=== PATIENT | female | born 1985 | race African-American/Black ===

== ENCOUNTER 2016-12-14 09:05 | Emergency (ER) | payer OTHER ==
[~2016-12-14] VITALS: Ht 160 cm; Wt 51.0 kg
[~2016-12-14 09:05] MED LIST: IBUP-232 PO; PERC5TAB12 PO
[2016-12-14 09:15] VITALS: BP 112/66; PULSE 81; RESP 20; TEMP 98.7; O2SAT 100
[2016-12-14 09:45] VITALS: O2SAT 99
[2016-12-14] MEDS ORDERED: SODIUM CHLORIDE 0.9% FLUSH 5 ML FLUSH IVF PRN (10:00)
[2016-12-14] MEDS ORDERED: PRED20 PO (10:13)
--- NOTE | 2016-12-14 10:13 | PD ---
HPI Chief Complaint: Respiratory Distress Time Seen by Provider: 09:44 Travel History International Travel<30 days: No Contact w/Intl Traveler<30days: No Traveled to known affect area: No History of Present Illness HPI 31-year-old female with history of asthma here with complaint of shortness of breath. Patient states that she has been doing well from an asthma perspective for the last 2 years. She does not have any home breathing treatments. She has been ill for the last 1-2 weeks with cough, chest congestion. Sputum is minimally productive. She states she feels wheezy but again does not have any home breathing treatments. No fevers or chills but does have body aches. EMS was called and patient was given 125 mg Solu-Medrol, DuoNeb 2 en route with some improvement of her symptoms subjectively. No recent travel, DVT or PE risk factors. PFSH Past Medical History Asthma: Yes Heart Rhythm Problems: Yes (AGE 10 - "RAPID HEART BEAT") Diminished Hearing: No Gastrointestinal Disorders: Yes (PANCREATITIS, GASTRITIS) Respiratory: Yes (ASTHMA) Immunizations Current: Yes Pancreatitis: Yes ?: Not : 1 Para: 1 Ovarian Cysts: Yes Social History Alcohol Use: No Tobacco Use: Yes (1 PPD) Substance Use: Yes (MARIJUANA DAILY) Allergies-Medications (Allergen,Severity, Reaction): Coded Allergies: Tuberculin PPD (Verified Allergy, Unknown, Hives, 12/14/16) Milk (Verified Adverse Reaction, Severe, UNKNOWN, 12/14/16) Tomato (Verified Adverse Reaction, Severe, UNKNOWN , 12/14/16) Morphine (Verified Adverse Reaction, Unknown, Nausea/Vomiting, 12/14/16) DOES NOT LIKE THE WAY IT MAKES HER FEEL Reported Meds & Prescriptions Reported Meds & Active Scripts Active Prednisone 20 Mg Tab 40 Mg PO DAILY 5 Days Ibuprofen 600 Mg Tab 600 Mg PO Q8HR PRN Review of Systems Except as stated in HPI: all other systems reviewed are Neg Physical Exam Narrative GENERAL: Well-appearing female in no acute distress SKIN: Warm and dry. HEAD: Normocephalic. EYES: No scleral icterus. No injection or drainage. ENT: Mucous membranes pink and moist. NECK: Supple CARDIOVASCULAR: Regular rate and rhythm. No murmur appreciated. RESPIRATORY: No accessory muscle use. Diffuse wheezing and rhonchi GASTROINTESTINAL: Abdomen soft, non-tender, nondistended. MUSCULOSKELETAL: Moves all extremities normally. No edema NEUROLOGICAL: Awake and alert. Normal speech. PSYCHIATRIC: Appropriate mood and affect; insight and judgment normal. Data Data Last Documented VS Vital Signs Date Time Temp Pulse Resp B/P Pulse Ox O2 Delivery O2 Flow Rate FiO2 12/14/16 09:45 99 Room Air 12/14/16 09:21 95 20 12/14/16 09:15 98.7 112/66 Orders Electrocardiogram (12/14/16 ) Ecg Monitoring (12/14/16 09:52) Oximetry (12/14/16 09:52) Sodium Chloride 0.9% Flush (Ns Flush) (12/14/16 10:00) Albuterol-Ipratropium Neb (Duoneb Neb) (12/14/16 10:00) Chest, Single Ap (12/14/16 ) MDM Medical Decision Making Medical Screen Exam Complete: Yes Emergency Medical Condition: Yes Medical Record Reviewed: Yes Differential Diagnosis 31-year-old female with history of asthma here with one to 2 weeks of cough, cold, chest congestion. Exam is consistent with asthma exacerbation, mild to moderate. Differential includes viral syndrome, influenza, pneumonia. No DVT or PE risk factors and patient is negative based on PERC criteria. Narrative Course patient given Solu-Medrol per EMS. Given additional 2 duo nebs here with improvement of her symptoms. Portal chest x-ray was obtained and by my read shows no evidence of infiltrate. Patient will be discharged home with steroids , albuterol. Twelve-lead EKG shows sinus rhythm without notable ST or T-wave abnormalities and normal intervals. Diagnosis Primary Impression: Asthma exacerbation Additional Impression: Viral syndrome Referrals: Primary Care Physician as needed Additional Instructions: Albuterol as needed. Steroids as prescribed. Med/Other Pt SpecificInfo: Prescription(s) given Scripts Nebulizer 1 Mis Mis #1 EA .ROUTE DIRECTED Ref 0 Use with albuterol every 4 hours as needed for shortness of breath, wheezing. Prov:Elva Nick MD 12/14/16 Albuterol Neb 2.5 Mg/3 Ml Neb2.5 Mg NEB Q4HR NEB PRN (SHORTNESS OF BREATH) #60 NEBULE Ref 0 Prov:Elva Nick MD 12/14/16 Albuterol 18 GM Inh (Ventolin Hfa 18 GM Inh)90 Mcg/Act Aer2 Puff INH Q4H PRN ( SHORTNESS OF BREATH) #1 INHALER Ref 0 Prov:Elva Nick MD 12/14/16 Prednisone 20 Mg Tab40 Mg PO DAILY 5 Days Ref 0 Prov:Elva Nick MD 12/14/16 Disposition: 01 DISCHARGE HOME Condition: Stable Elva Nick MD Dec 14, 2016 10:13
[2016-12-14] MEDS ORDERED: VENTAER INH (10:15)
[2016-12-14] MEDS ORDERED: NEBULIZER1 MI1 (10:15)
[2016-12-14] MEDS ORDERED: ALBU0.08 NEB (10:15)
[2016-12-14] MEDS: RESP: ALBUTEROL 2.5 MG/IPRATROPIUM 0.5 MG NEB (SCH) INH (10:18)
--- NOTE | 2016-12-14 10:28 | RADRPT ---
EXAM DATE/TIME: 12/14/2016 10:03 [facility] COMPARISON: CHEST SINGLE AP, November 21, 2016, 13:44. INDICATIONS : Short of breath and cough. MEDICAL HISTORY : None. SURGICAL HISTORY : None. ENCOUNTER: Initial ACUITY: 4 - 6 days PAIN SCORE: 0/10 LOCATION: Bilateral chest FINDINGS: A single view of the chest demonstrates the lungs to be symmetrically aerated without evidence of mas s, infiltrate or effusion. The cardiomediastinal contours are unremarkable. Osseous structures are intact. CONCLUSION: No acute disease. No significant change has occurred. David Monterroso MD on December 14, 2016 at 10:26 Board Certified Radiologist. This report was verified electronically.
--- NOTE | 2016-12-14 22:35 | EKG ---
Date Performed: 12/14/2016 Time Performed: 09:33:05 PTAGE: 31 years EKG: Sinus rhythm NORMAL ECG PREVIOUS TRACING : 11/21/2016 12.52 DOCTOR: Staci Pabon Interpretating Date/Time 12/14/2016 22:34:13
== END 2016-12-14 10:49 | disposition home or self-care (01) ==
LOC: NEPE 09:05
DX: J45.901 Unspecified asthma with (acute) exacerbation (principal); B34.9 Viral infection, unspecified; F17.210 Nicotine dependence, cigarettes, uncomplicated; F12.10 Cannabis abuse, uncomplicated
CPT/HCPCS: 71010; 93005; 94640; 94664

== ENCOUNTER 2017-06-23 16:00 | Emergency (ER) | payer OTHER ==
[~2017-06-23] VITALS: Ht 160 cm; Wt 48.1 kg
[~2017-06-23 16:00] MED LIST changes: +ALBU0.08 NEB; +NEBULIZER1 MI1; -PERC5TAB12 PO; +PRED20 PO; +VENTAER INH
[2017-06-23 16:03] VITALS: BP 157/85; PULSE 76; RESP 16; TEMP 99.7; O2SAT 100
[2017-06-23] MEDS ORDERED: SODIUM CHLOR 0.9% 1000 ML INJ 1,000 ML IV SCH (16:12)
[2017-06-23] MEDS ORDERED: ONDANSETRON HCL 4 MG/2 ML VIAL IVP ONE (16:15)
[2017-06-23] MEDS ORDERED: SODIUM CHLORIDE 0.9% FLUSH 10 ML FLUSH IV FLUSH PRN (16:15)
[2017-06-23] MEDS ORDERED: HYDROmorphone HCL PF 1 MG/ML VIAL IVS ONE (16:15)
--- NOTE | 2017-06-23 16:23 | PD ---
HPI Chief Complaint: Abdominal Pain Time Seen by Provider: 16:06 Travel History International Travel<30 days: No Contact w/Intl Traveler<30days: No Traveled to known affect area: No History of Present Illness HPI The patient is a 32-year-old [place] female who presents emergency department for abdominal pain. The patient states she had pizza approximate 7: 30 PM last night and then went to bed. Patient awakened at 5:30 AM with nausea , vomiting, and epigastric abdominal pain. The patient has a history of similar symptoms secondary to gastritis and possibly pancreatitis. The patient denies any history of gallstones or heavy alcohol use. She denies previous abdominal surgeries. The patient now complains of dry heaves secondary to persistent nausea, denies any lower abdominal pain, dysuria, fatigue, urgency, vaginal bleeding, or vaginal discharge. The first day last menstrual cycle was at the beginning of the month, patient denies and states she is currently not sexually active. The patient denies any associated fever, chills , or sweats. Symptoms are moderate without any alleviating or exacerbating factors. PFSH Past Medical History Asthma: Yes Heart Rhythm Problems: Yes (AGE 10 - "RAPID HEART BEAT") Diminished Hearing: No Gastrointestinal Disorders: Yes (PANCREATITIS, GASTRITIS) Respiratory: Yes (ASTHMA) Immunizations Current: Yes Pancreatitis: Yes ?: Not LMP: 05/2017 : 1 Para: 1 Ovarian Cysts: Yes Social History Alcohol Use: No Tobacco Use: Yes (1 PPD) Substance Use: Yes (MARIJUANA DAILY) Allergies-Medications (Allergen,Severity, Reaction): Coded Allergies: Tuberculin PPD (Verified Allergy, Unknown, Hives, 06/23/17) Milk (Verified Adverse Reaction, Severe, UNKNOWN, 06/23/17) Tomato (Verified Adverse Reaction, Severe, UNKNOWN , 06/23/17) Morphine (Verified Adverse Reaction, Unknown, Nausea/Vomiting, 06/23/17) DOES NOT LIKE THE WAY IT MAKES HER FEEL Reported Meds & Prescriptions Reported Meds & Active Scripts Active Nebulizer 1 Mis Mis 1 Ea .ROUTE DIRECTED Use with albuterol every 4 hours as needed for shortness of breath, wheezing. Albuterol Neb (Albuterol Sulfate) 2.5 Mg/3 Ml Neb 2.5 Mg NEB Q4HR NEB PRN Ventolin Hfa 18 GM Inh (Albuterol Sulfate) 90 Mcg/Act Aer 2 Puff INH Q4H PRN Prednisone 20 Mg Tab 40 Mg PO DAILY 5 Days Ibuprofen 600 Mg Tab 600 Mg PO Q8HR PRN Review of Systems Except as stated in HPI: all other systems reviewed are Neg General / Constitutional: No: Fever, Chills Cardiovascular: No: Chest Pain or Discomfort Respiratory: No: Shortness of Breath Gastrointestinal: Positive: Nausea, Vomiting, Abdominal Pain, No: Diarrhea, Constipation, Changes in Bowel Habits Genitourinary: No: Urgency, Frequency, Dysuria, Discharge, Vaginal Bleeding Physical Exam Narrative GENERAL: Awake, alert, very pleasant 32-year-old female who appears her stated age is in no acute respiratory distress. SKIN: Focused skin assessment warm/dry. HEAD: Atraumatic. Normocephalic. EYES: Pupils equal and round. No scleral icterus. No injection or drainage. ENT: No nasal bleeding or discharge. Slightly dry mucous members. NECK: Trachea midline. No JVD. CARDIOVASCULAR: Regular rate and rhythm. No murmur appreciated. RESPIRATORY: No accessory muscle use. Clear to auscultation. Breath sounds equal bilaterally. GASTROINTESTINAL: Abdomen soft, epigastric tenderness. No rebound tenderness. Back: No CVA tenderness. MUSCULOSKELETAL: No obvious deformities. No clubbing. No cyanosis. No edema. NEUROLOGICAL: Awake and alert. No obvious cranial nerve deficits. Motor grossly within normal limits. Normal speech. PSYCHIATRIC: Appropriate mood and affect; insight and judgment normal. Data Data Last Documented VS Vital Signs Date Time Temp Pulse Resp B/P Pulse Ox O2 Delivery O2 Flow Rate FiO2 06/23/17 18:07 72 18 111/65 99 Room Air 06/23/17 16:03 99.7 Orders Complete Blood Count With Diff (06/23/17 16:12) Comprehensive Metabolic Panel (06/23/17 16:12) Lipase (06/23/17 16:12) Urinalysis - C+S If Indicated (06/23/17 16:12) Iv Access Insert/Monitor (06/23/17 16:12) Ecg Monitoring (06/23/17 16:12) Oximetry (06/23/17 16:12) Ondansetron Inj (Zofran Inj) (06/23/17 16:15) Sodium Chlor 0.9% 1000 Ml Inj (Ns 1000 M (06/23/17 16:12) Sodium Chloride 0.9% Flush (Ns Flush) (06/23/17 16:15) Hydromorphone Pf Inj (Dilaudid Pf Inj) (06/23/17 16:15) Us Abdomen Gallbladder (06/23/17 ) Hydromorphone Pf Inj (Dilaudid Pf Inj) (06/23/17 17:30) Famotidine Inj (Pepcid Inj) (06/23/17 17:30) Labs Laboratory Tests Test 06/23/17 16:30 White Blood Count 8.4 TH/MM3 Red Blood Count 4.94 MIL/MM3 Hemoglobin 13.2 GM/DL Hematocrit 40.6 % Mean Corpuscular Volume 82.3 FL Mean Corpuscular Hemoglobin 26.7 PG Mean Corpuscular Hemoglobin 32.4 % Concent Red Cell Distribution Width 13.4 % Platelet Count 152 TH/MM3 Mean Platelet Volume 8.9 FL Neutrophils (%) (Auto) 87.6 % Lymphocytes (%) (Auto) 9.2 % Monocytes (%) (Auto) 0.8 % Eosinophils (%) (Auto) 0.1 % Basophils (%) (Auto) 2.3 % Neutrophils # (Auto) 7.3 TH/MM3 Lymphocytes # (Auto) 0.8 TH/MM3 Monocytes # (Auto) 0.1 TH/MM3 Eosinophils # (Auto) 0.0 TH/MM3 Basophils # (Auto) 0.2 TH/MM3 CBC Comment DIFF FINAL Differential Comment Sodium Level 144 MEQ/L Potassium Level 3.5 MEQ/L Chloride Level 113 MEQ/L Carbon Dioxide Level 22.8 MEQ/L Anion Gap 8 MEQ/L Blood Urea Nitrogen 12 MG/DL Creatinine 1.10 MG/DL Estimat Glomerular Filtration 69 ML/MIN Rate Random Glucose 124 MG/DL Calcium Level 8.7 MG/DL Total Bilirubin 0.3 MG/DL Aspartate Amino Transf 39 U/L (AST/SGOT) Alanine Aminotransferase 32 U/L (ALT/SGPT) Alkaline Phosphatase 72 U/L Total Protein 7.1 GM/DL Albumin 3.5 GM/DL Lipase 104 U/L [facility] Medical Decision Making Medical Screen Exam Complete: Yes Emergency Medical Condition: Yes Medical Record Reviewed: Yes Interpretation(s) Last Impressions Gall Bladder Ultrasound 06/23/17 0000 Signed Impressions: Service Date/Time: Friday, June 23, 2017 16:56 - CONCLUSION: Negative sonogram of the gallbladder and liver. Klever Rivera MD Laboratory Tests Test 06/23/17 16:30 White Blood Count 8.4 TH/MM3 Red Blood Count 4.94 MIL/MM3 Hemoglobin 13.2 GM/DL Hematocrit 40.6 % Mean Corpuscular Volume 82.3 FL Mean Corpuscular Hemoglobin 26.7 PG Mean Corpuscular Hemoglobin 32.4 % Concent Red Cell Distribution Width 13.4 % Platelet Count 152 TH/MM3 Mean Platelet Volume 8.9 FL Neutrophils (%) (Auto) 87.6 % Lymphocytes (%) (Auto) 9.2 % Monocytes (%) (Auto) 0.8 % Eosinophils (%) (Auto) 0.1 % Basophils (%) (Auto) 2.3 % Neutrophils # (Auto) 7.3 TH/MM3 Lymphocytes # (Auto) 0.8 TH/MM3 Monocytes # (Auto) 0.1 TH/MM3 Eosinophils # (Auto) 0.0 TH/MM3 Basophils # (Auto) 0.2 TH/MM3 CBC Comment DIFF FINAL Differential Comment Sodium Level 144 MEQ/L Potassium Level 3.5 MEQ/L Chloride Level 113 MEQ/L Carbon Dioxide Level 22.8 MEQ/L Anion Gap 8 MEQ/L Blood Urea Nitrogen 12 MG/DL Creatinine 1.10 MG/DL Estimat Glomerular Filtration 69 ML/MIN Rate Random Glucose 124 MG/DL Calcium Level 8.7 MG/DL Total Bilirubin 0.3 MG/DL Aspartate Amino Transf 39 U/L (AST/SGOT) Alanine Aminotransferase 32 U/L (ALT/SGPT) Alkaline Phosphatase 72 U/L Total Protein 7.1 GM/DL Albumin 3.5 GM/DL Lipase 104 U/L Differential Diagnosis Differential diagnosis includes gastritis, pancreatitis, biliary colic, cholecystitis, peptic ulcer disease, food poisoning, viral syndrome. Narrative Course IV was established, labs are drawn and sent, and the patient was placed on cardiac telemetry monitoring and continuous pulse oximetry monitoring. The patient was a administered Dilaudid, Zofran, and IV fluids. Ultrasound of the gallbladder was performed. The patient's temperature was 99.7, CBC was unremarkable. LFTs are unremarkable except for AST of 39, AST and lipase are unremarkable. Creatinine is mildly elevated 1.10. Ultrasound is unremarkable, no evidence of cholecystitis. The patient was reevaluated for symptom control. Diagnosis Primary Impression: Abdominal pain Qualified Code: R10.13 - Epigastric pain Additional Impression: Gastritis Qualified Code: K29.00 - Acute gastritis, presence of bleeding unspecified, unspecified gastritis type Patient Instructions: General Instructions Additional Instructions: Medications as directed. Follow-up with your primary physician. Follow-up with gastroenterology if symptoms persist as he may benefit from outpatient endoscopy. Return if symptoms worsen or progress. Please provide the patient a copy of her ultrasound results and lab results at discharge. Med/Other Pt SpecificInfo: Prescription(s) given Scripts Hydrocodone-Acetaminophen (Timbo)5-325 mg Tab1 Tab PO Q6H PRN (PAIN) #12 TAB Ref 0 Prov:Kd Malik MD 06/23/17 Ondansetron Odt (Zofran Odt)4 Mg Tab4 Mg SL Q6HR PRN (Nausea/Vomiting) #7 TAB Ref 0 Prov:Kd Malik MD 06/23/17 Ranitidine (Zantac 150 Maximum Strength)150 Mg [id number] Mg PO BID 28 Days Prov:Kd Malik MD 06/23/17 Disposition: 01 DISCHARGE HOME Condition: Stable Kd Malik MD Jun 23, 2017 16:23
[2017-06-23 16:41] LABS: AUTOMATED NEUTROPHIL # 7.3 TH/MM3 (1.8-7.7); BASOPHIL # 0.2 TH/MM3 (0-0.2); BASOPHIL % 2.3 % (0.0-2.0); EOSINOPHIL % 0.1 % (0.0-4.0); HEMATOCRIT 40.6 % (35.0-46.0); HEMO FLAGS DIFF FINAL; LYMPH % 9.2 % (9.0-44.0); LYMPHOCYTE # 0.8 TH/MM3 (1.0-4.8); MEAN CELL VOLUME 82.3 FL (80.0-100.0); MEAN CORPUSCULAR HEMOGLOBIN 26.7 PG (27.0-34.0); MEAN CORPUSCULAR HGB CONC 32.4 % (32.0-36.0); MONO % 0.8 % (0.0-8.0); NEUT % 87.6 % (16.0-70.0); PLATELET COUNT 152 TH/MM3 (150-450); RED BLOOD COUNT 4.94 MIL/MM3 (4.00-5.30); RED CELL DISTRIBUTION WIDTH 13.4 % (11.6-17.2); WHITE BLOOD COUNT 8.4 TH/MM3 (4.0-11.0)
[2017-06-23 16:50] LABS: CHLORIDE 113 MEQ/L (98-107); POTASSIUM 3.5 MEQ/L (3.5-5.1); SODIUM (NA) 144 MEQ/L (136-145)
[2017-06-23 16:55] LABS: ANION GAP 8 MEQ/L (5-15); BICARBONATE 22.8 MEQ/L (21.0-32.0); BLOOD UREA NITROGEN 12 MG/DL (7-18)
[2017-06-23 16:57] LABS: ALT (GPT) 32 U/L (10-53); AST (GOT) 39 U/L (15-37); GLOMERULAR FILTRATION RATE 69 ML/MIN (>89)
[2017-06-23 16:59] LABS: TOTAL BILIRUBIN ADULT 0.3 MG/DL (0.2-1.0)
[2017-06-23 17:00] LABS: ALKALINE PHOSPHATASE 72 U/L (45-117)
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
[2017-06-23] MEDS ORDERED: FAMOTIDINE 20 MG/2 ML VIAL IV PUSH SCH (17:30)
[2017-06-23] MEDS ORDERED: HYDROmorphone HCL PF 1 MG/ML VIAL IV PUSH ONE (17:30)
[2017-06-23 18:07] VITALS: BP 111/65; PULSE 72; RESP 18; O2SAT 99
[2017-06-23] MEDS ORDERED: ZOFR4TAB3 SL (18:23)
[2017-06-23] MEDS ORDERED: NORC5TAB PO (18:23)
[2017-06-23] MEDS ORDERED: ZANTTAB PO (18:23)
[2017-06-23 19:03] VITALS: BP 120/74; PULSE 86; RESP 16; TEMP 100; O2SAT 99
== END 2017-06-23 19:15 | disposition home or self-care (01) ==
LOC: PHED 16:00
DX: K29.00 Acute gastritis without bleeding (principal); F17.200 Nicotine dependence, unspecified, uncomplicated
CPT/HCPCS: 76705; 80053; 83690; 85025; 96361; 96374; 96375; 99285; J1170; J2405; J7030

== ENCOUNTER 2017-06-24 22:14 | Emergency (ER) | payer OTHER ==
[~2017-06-24] VITALS: Ht 160 cm; Wt 48.8 kg
[~2017-06-24 22:14] MED LIST changes: +NORC5TAB PO; +ZANTTAB PO; +ZOFR4TAB3 SL
[2017-06-24 22:28] VITALS: BP 136/76; PULSE 62; RESP 12; TEMP 99.5; O2SAT 100
[2017-06-25] MEDS ORDERED: TYLE325T PO (08:40)
== END 2017-06-24 22:49 | disposition left against medical advice (07) ==
LOC: PHED 22:14
DX: R10.9 Unspecified abdominal pain (principal)
CPT/HCPCS: 99281

== ENCOUNTER 2017-06-25 06:05 | Emergency (ER) | payer OTHER ==
[~2017-06-25] VITALS: Ht 160 cm; Wt 48.8 kg
[2017-06-25 06:09] VITALS: BP 141/80; PULSE 62; RESP 12; TEMP 98.8; O2SAT 100
[2017-06-25] MEDS ORDERED: SODIUM CHLOR 0.9% 1000 ML INJ 1,000 ML IV SCH (06:27)
[2017-06-25] MEDS ORDERED: LIDOCAINE VISCOUS 2% SOLN 15 ML UDC PO ONE (06:30)
[2017-06-25] MEDS ORDERED: ONDANSETRON HCL 4 MG/2 ML VIAL IVP ONE (06:30)
[2017-06-25] MEDS ORDERED: PANTOPRAZOLE SODIUM 40 MG VIAL IVP ONE (06:30)
[2017-06-25] MEDS ORDERED: ALUMINUM/MAGNESIUM/SIMETH 30 ML CUP PO ONE (06:30)
[2017-06-25] MEDS ORDERED: SODIUM CHLORIDE 0.9% FLUSH 10 ML FLUSH IV FLUSH PRN (06:30)
--- NOTE | 2017-06-25 07:00 | PD ---
HPI Chief Complaint: Abdominal Pain Time Seen by Provider: 06:22 Travel History International Travel<30 days: No Contact w/Intl Traveler<30days: No Traveled to known affect area: No History of Present Illness HPI Patient is a 32-year-old female who comes in complaining of abdominal pain. She was here 2 days ago for the same thing. She has labs and ultrasound performed that showed no acute abnormalities. She was discharged with Zantac, pain medicine, Zofran. She said she took the pills once, but they have not been helping. She says the pain is so bad that she cannot sleep. The pain is located in her epigastric area. She says it started after eating pizza tonight to go. She says she has had a fever of 101. She has had nausea and vomiting. She denies any dysuria or discharge. PFSH Past Medical History Asthma: Yes Heart Rhythm Problems: Yes (AGE 10 - "RAPID HEART BEAT") Diminished Hearing: No Gastrointestinal Disorders: Yes (PANCREATITIS, GASTRITIS) Respiratory: Yes (ASTHMA) Immunizations Current: Yes Pancreatitis: Yes Tetanus Vaccination: Unknown Influenza Vaccination: Yes ?: Not LMP: 05/26/17 : 1 Para: 1 Ovarian Cysts: Yes Social History Alcohol Use: Yes (SOC) Tobacco Use: Yes (1 PPD) Substance Use: No (DENIES, PREVIOUSLY STATED MARIJUANA DAILY) Allergies-Medications (Allergen,Severity, Reaction): Coded Allergies: Tuberculin PPD (Verified Allergy, Unknown, Hives, 06/23/17) Milk (Verified Adverse Reaction, Severe, UNKNOWN, 06/23/17) Tomato (Verified Adverse Reaction, Severe, UNKNOWN , 06/23/17) Morphine (Verified Adverse Reaction, Unknown, Nausea/Vomiting, 06/23/17) DOES NOT LIKE THE WAY IT MAKES HER FEEL Reported Meds & Prescriptions Reported Meds & Active Scripts Active [place]anova (Hydrocodone-Acetaminophen) 5-325 mg Tab 1 Tab PO Q6H PRN Zofran Odt (Ondansetron Odt) 4 Mg Tab 4 Mg SL Q6HR PRN Zantac 150 Maximum Strength (Ranitidine HCl) 150 Mg Tab 150 Mg PO BID 28 Days Nebulizer 1 Mis Mis 1 Ea .ROUTE DIRECTED Use with albuterol every 4 hours as needed for shortness of breath, wheezing. Albuterol Neb (Albuterol Sulfate) 2.5 Mg/3 Ml Neb 2.5 Mg NEB Q4HR NEB PRN Ventolin Hfa 18 GM Inh (Albuterol Sulfate) 90 Mcg/Act Aer 2 Puff INH Q4H PRN Prednisone 20 Mg Tab 40 Mg PO DAILY 5 Days Ibuprofen 600 Mg Tab 600 Mg PO Q8HR PRN Review of Systems Except as stated in HPI: all other systems reviewed are Neg General / Constitutional: Positive: Fever HENT: No: Headaches, Lightheadedness Cardiovascular: No: Chest Pain or Discomfort Respiratory: No: Shortness of Breath Gastrointestinal: Positive: Nausea, Vomiting, Abdominal Pain Genitourinary: No: Dysuria Musculoskeletal: No: Edema Skin: No Rash, No Change in Pigmentation Neurologic: No: Weakness, Dizziness Physical Exam Narrative GENERAL: Awake and alert, in no acute distress. SKIN: Focused skin assessment warm/dry. HEAD: Atraumatic. Normocephalic. EYES: Pupils equal and round. No scleral icterus. ENT: Mucous membranes pink and moist. NECK: Trachea midline. No JVD. CARDIOVASCULAR: Regular rate and rhythm. No murmur appreciated. RESPIRATORY: No accessory muscle use. Clear to auscultation. Breath sounds equal bilaterally. GASTROINTESTINAL: Abdomen soft, nondistended. Tender to palpation of the epigastric area. No rebound or guarding. MUSCULOSKELETAL: No obvious deformities. No clubbing. No cyanosis. No edema. NEUROLOGICAL: Awake and alert. No obvious cranial nerve deficits. Motor grossly within normal limits. Normal speech. PSYCHIATRIC: Appropriate mood and affect; insight and judgment normal. Data Data Last Documented VS Vital Signs Date Time Temp Pulse Resp B/P Pulse Ox O2 Delivery O2 Flow Rate FiO2 06/25/17 06:25 18 06/25/17 06:09 98.8 62 141/80 100 Orders Complete Blood Count With Diff (06/25/17 06:27) Comprehensive Metabolic Panel (06/25/17 06:27) Lipase (06/25/17 06:27) Prothrombin Time / Inr (Pt) (06/25/17 06:27) Act Partial Throm Time (Ptt) (06/25/17 06:27) Urinalysis - C+S If Indicated (06/25/17 06:27) Ua Includes Microscopic (06/25/17 06:27) Ct Abd/Pel W Iv Contrast(Rout) (06/25/17 06:27) Iv Access Insert/Monitor (06/25/17 06:27) Ecg Monitoring (06/25/17 06:27) Oximetry (06/25/17 06:27) Ondansetron Inj (Zofran Inj) (06/25/17 06:30) Pantoprazole Inj (Protonix Inj) (06/25/17 06:30) Sodium Chlor 0.9% 1000 Ml Inj (Ns 1000 M (06/25/17 06:27) Sodium Chloride 0.9% Flush (Ns Flush) (06/25/17 06:30) Al-Mag Hy-Si 40-40-4 Mg/Ml Liq (Mag-Al P (06/25/17 06:30) Lidocaine 2% Viscous (Xylocaine 2% Visco (06/25/17 06:30) Ed Urine Pregnancytest Poc (06/25/17 06:27) MDM Medical Decision Making Medical Screen Exam Complete: Yes Emergency Medical Condition: Yes Medical Record Reviewed: Yes Differential Diagnosis Gastritis versus GERD versus pancreatitis versus cholecystitis Narrative Course Patient is a 32-year-old female comes in complaining of epigastric abdominal pain. She was here 2 days ago for the same thing. Exam shows tenderness to the epigastric region. IV established, labs sent. Patient given GI cocktail. Patient signed out to Dr. Chakraborty to follow up testing and disposition the patient. Condition: Stable Wendy Alexander MD Jun 25, 2017 07:00
[2017-06-25 07:06] LABS: HEMATOCRIT 39.4 % (35.0-46.0); MEAN CELL VOLUME 82.3 FL (80.0-100.0); MEAN CORPUSCULAR HEMOGLOBIN 27.4 PG (27.0-34.0); MEAN CORPUSCULAR HGB CONC 33.3 % (32.0-36.0); PLATELET COUNT 135 TH/MM3 (150-450); RED BLOOD COUNT 4.79 MIL/MM3 (4.00-5.30); RED CELL DISTRIBUTION WIDTH 13.6 % (11.6-17.2)
[2017-06-25 07:10] VITALS: RESP 16; O2SAT 100
[2017-06-25 07:11] LABS: CHLORIDE 106 MEQ/L (98-107); POTASSIUM 3.6 MEQ/L (3.5-5.1); SODIUM (NA) 138 MEQ/L (136-145)
[2017-06-25 07:14] LABS: ANION GAP 7 MEQ/L (5-15); BLOOD UREA NITROGEN 12 MG/DL (7-18)
[2017-06-25 07:15] LABS: APTT (PATIENT) 22.7 SEC (24.3-30.1); PROTHROMBIN TIME - PATIENT 11.4 SEC (9.8-11.6)
[2017-06-25 07:17] LABS: ALT (GPT) 33 U/L (10-53); AST (GOT) 28 U/L (15-37); GLOMERULAR FILTRATION RATE 81 ML/MIN (>89)
[2017-06-25 07:19] LABS: TOTAL BILIRUBIN ADULT 0.4 MG/DL (0.2-1.0)
[2017-06-25 07:20] LABS: ALKALINE PHOSPHATASE 61 U/L (45-117)
[2017-06-25] MEDS ORDERED: KETOROLAC TROMETHAMINE 30 MG/ML (IVP) VIAL IV PUSH ONE (07:30)
--- NOTE | 2017-06-25 07:30 | PD ---
Physical Exam Narrative Received sign out from previous provider to follow up CTa/p and reevaluate. Pt is a 32yo F presents to the ED with c/o epigastric abdominal pain for 2 days. Pt is nonradiating, and associated with nausea and vomiting. States she has had this pain before, maybe a year ago. Pt was just seen here 2 days ago for this pain and had negative ultrasound. Pt was given dilaudid and she said that helped with the pain. Specifically requesting dilaudid. Denies any previous abdominal surgery or significant PMH. Abdominal exam is significant for epigastric tenderness. Pt given toradol with no improvement of pain so dilaudid 0.5mg IV given. Labs reviewed, no leukocytosis. Mild thrombocytopenia which was similar to 2015. CMP unremarkable. Lipase negative. negative. UA showed no leukocyte or nitrite. Culture not indicated. CTa/p showed no abnormality to explain clinical symptoms. No acute finding visualized. There is a new 13mm enhancing lesion within liver and outpatient elective liver MRI w/wo contrast recommended. Copy of report given to patient to follow up with PMD. Informed pt of this. Data Data Last Documented VS Vital Signs Date Time Temp Pulse Resp B/P Pulse Ox O2 Delivery O2 Flow Rate FiO2 06/25/17 07:10 16 100 Room Air 06/25/17 06:09 98.8 62 141/80 Orders Complete Blood Count With Diff (06/25/17 06:27) Comprehensive Metabolic Panel (06/25/17 06:27) Lipase (06/25/17 06:27) Prothrombin Time / Inr (Pt) (06/25/17 06:27) Act Partial Throm Time (Ptt) (06/25/17 06:27) Urinalysis - C+S If Indicated (06/25/17 06:27) Ua Includes Microscopic (06/25/17 06:27) Ct Abd/Pel W Iv Contrast(Rout) (06/25/17 06:27) Iv Access Insert/Monitor (06/25/17 06:27) Ecg Monitoring (06/25/17 06:27) Oximetry (06/25/17 06:27) Ondansetron Inj (Zofran Inj) (06/25/17 06:30) Pantoprazole Inj (Protonix Inj) (06/25/17 06:30) Sodium Chlor 0.9% 1000 Ml Inj (Ns 1000 M (06/25/17 06:27) Sodium Chloride 0.9% Flush (Ns Flush) (06/25/17 06:30) Al-Mag Hy-Si 40-40-4 Mg/Ml Liq (Mag-Al P (06/25/17 06:30) Lidocaine 2% Viscous (Xylocaine 2% Visco (06/25/17 06:30) Ed Urine Pregnancytest Poc (06/25/17 06:27) Ketorolac Inj (Toradol Inj) (06/25/17 07:30) Bhcg Screen Qualitative (06/25/17 06:55) Iohexol 350 Inj (Omnipaque 350 Inj) (06/25/17 08:00) Hydromorphone Pf Inj (Dilaudid Pf Inj) (06/25/17 08:45) Labs Laboratory Tests Test 06/25/17 06/25/17 06:55 07:43 White Blood Count 7.0 TH/MM3 Red Blood Count 4.79 MIL/MM3 Hemoglobin 13.1 GM/DL Hematocrit 39.4 % Mean Corpuscular Volume 82.3 FL Mean Corpuscular Hemoglobin 27.4 PG Mean Corpuscular Hemoglobin 33.3 % Concent Red Cell Distribution Width 13.6 % Platelet Count 135 TH/MM3 Mean Platelet Volume 9.8 FL Neutrophils (%) (Auto) % Lymphocytes (%) (Auto) % Monocytes (%) (Auto) % Eosinophils (%) (Auto) % Basophils (%) (Auto) % Neutrophils # (Auto) TH/MM3 Lymphocytes # (Auto) TH/MM3 Monocytes # (Auto) TH/MM3 Eosinophils # (Auto) TH/MM3 Basophils # (Auto) TH/MM3 CBC Comment AUTO DIFF Differential Total Cells 100 Counted Neutrophils % (Manual) 72 % Band Neutrophils % 1 % Lymphocytes % 22 % Monocytes % 4 % Eosinophils % 1 % Neutrophils # (Manual) 5.1 TH/MM3 Differential Comment FINAL DIFF MANUAL Platelet Estimate NORMAL Platelet Morphology Comment NORMAL Red Cell Morphology Comment NORMAL Prothrombin Time 11.4 SEC Prothromb Time International 1.0 RATIO Ratio Activated Partial 22.7 SEC Thromboplast Time Sodium Level 138 MEQ/L Potassium Level 3.6 MEQ/L Chloride Level 106 MEQ/L Carbon Dioxide Level 25.0 MEQ/L Anion Gap 7 MEQ/L Blood Urea Nitrogen 12 MG/DL Creatinine 0.95 MG/DL Estimat Glomerular Filtration 81 ML/MIN Rate Random Glucose 96 MG/DL Calcium Level 8.6 MG/DL Total Bilirubin 0.4 MG/DL Aspartate Amino Transf 28 U/L (AST/SGOT) Alanine Aminotransferase 33 U/L (ALT/SGPT) Alkaline Phosphatase 61 U/L Total Protein 6.8 GM/DL Albumin 3.4 GM/DL Lipase 85 U/L Beta HCG, Qualitative LESS THAN 1 MIU/ML Urine Collection Type CLEAN CATCH Urine Color YELLOW Urine Turbidity CLEAR Urine pH 6.0 Urine Specific [place] 1.010 Urine Protein NEG mg/dL Urine Glucose (UA) NEG mg/dL Urine Ketones TRACE mg/dL Urine Occult Blood TRACE Urine Nitrite NEG Urine Bilirubin NEG Urine Leukocyte Esterase NEG Urine RBC 0-3 /hpf Urine WBC 0-2 /hpf Urine Squamous Epithelial 0-5 /hpf Cells Microscopic Urinalysis Comment CULT NOT INDICATED MDM Supervised Visit with SANTOSH: No Diagnosis Primary Impression: Abdominal pain Qualified Code: R10.13 - Epigastric pain Patient Instructions: General Instructions Departure Forms: Tests/Procedures Additional Instruction: Please follow up with your PMD for further evaluation of your abdominal pain. CTa/p showed new 13mm enhancing lesion within segment 7 of the liver. Differential diagnostic considerations include hemangioma, focal nodular hyperplasia or adenoma. Please discussed with your primary care physician and consider outpatient elective liver MRI with and without IV contrast. Return to ED if symptoms worsen. Med/Other Pt SpecificInfo: Prescription(s) given Scripts Acetaminophen (Tylenol)325 Mg [id number] Mg PO Q6H PRN (PAIN SCALE 1 TO 4) #20 TAB Ref 0 Prov:Amanda Chakraborty DO 06/25/17 Disposition: 01 DISCHARGE HOME Condition: Stable Amanda Chakraborty DO Jun 25, 2017 07:30
[2017-06-25 07:35] LABS: HEMO FLAGS AUTO DIFF
[2017-06-25 07:38] LABS: BANDS 1 % (0-6); EOSINOPHILS 1 % (0-4); NEUTROPHIL # MANUAL DIFF 5.1 TH/MM3 (1.8-7.7); PLATELET ESTIMATE SMEAR NORMAL (NORMAL); PLATELET MORPHOLOGY NORMAL (NORMAL); POLYS (SEG NEUTROPHILS) 72 % (16-70); SCAN/DIFF FINAL DIFF MANUAL; WBC DIFF SAMPLE 100
[2017-06-25 07:53] LABS: BLOOD, URINE TRACE (NEG); GLUCOSE,URINE NEG (NEG); KETONE, URINE TRACE mg/dL (NEG); NITRITE,URINE NEG (NEG)
[2017-06-25 07:54] LABS: METHOD OF COLLECTION CLEAN CATCH; URINE COLOR YELLOW (YELLW/STRAW)
[2017-06-25 07:57] LABS: COMMENT (UR) CULT NOT INDICATED; CULTURE IF INDICATED CULT NOT INDICATED; RBC, URINE 0-3 /hpf (0-3); SQUAMOUS EPITHELIAL CELL URINE 0-5 /hpf (0-5); WBC, URINE 0-2 /hpf (0-5)
[2017-06-25 08:00] LABS: BHCG SCREEN QUALITATIVE LESS THAN 1 MIU/ML (0-5)
[2017-06-25] MEDS ORDERED: IOHEXOL 350 MG/ML 10 ML VIAL (for RAD DIAG) IV ONE (08:00)
--- NOTE | 2017-06-25 08:11 | RADRPT ---
EXAM DATE/TIME: 06/25/2017 07:46 [facility] COMPARISON: US ABDOMEN - GALLBLADDER, June 23, 2017, 16:56. CT ABDOMEN & PELVIS W CONTRAST, April 18, 2014, 13:01. INDICATIONS : Diffuse abdominal pain with nausea. IV CONTRAST: 90 cc Omnipaque 350 (iohexol) IV ORAL CONTRAST: No oral contrast ingested. RADIATION DOSE: 4.45 CTDIvol (mGy) MEDICAL HISTORY : Pancreatitis. Gastritis. SURGICAL HISTORY : None. ENCOUNTER: Initial ACUITY: 3 days PAIN SCALE: 5/10 LOCATION: abdomen TECHNIQUE: Volumetric scanning of the abdomen and pelvis was performed. Using automated exposure control and ad justment of the mA and/or kV according to patient size, radiation dose was kept as low as reasonably achievable to obtain optimal diagnostic quality images. DICOM format image data is available electro nically for review and comparison. FINDINGS: LOWER LUNGS: The visualized lower lungs are clear. LIVER: There is an enhancing lesion within the liver dome in segment 7 measuring 13 mm. This was not visuali zed previously. There is no dilation of the biliary tree. No calcified gallstones. SPLEEN: Normal size without lesion. PANCREAS: Within normal limits. KIDNEYS: Normal in size and shape. There is no mass, stone or hydronephrosis. ADRENAL GLANDS: Within normal limits. VASCULAR: There is no aortic aneurysm. BOWEL/MESENTERY: The stomach, small bowel, and colon demonstrate no acute abnormality. There is no free intraperitone al air or fluid. ABDOMINAL WALL: Within normal limits. RETROPERITONEUM: There is no lymphadenopathy. BLADDER: No wall thickening or mass. REPRODUCTIVE: Within normal limits. There is a normal cyst/follicle the right ovary measuring 16 mm. INGUINAL: There is no lymphadenopathy or hernia. MUSCULOSKELETAL: Within normal limits. CONCLUSION: 1. No abnormality is identified to explain the clinical symptoms. No acute finding is visualized. 2. There is a new 13 mm enhancing lesion within segment 7 of the liver. Based on the appearance, diff erential diagnostic considerations include hemangioma, focal nodular hyperplasia, or hepatocellular a denoma. Since this was not present previously, it would be ideal to definitively characterize on an o utpatient elective basis with liver MRI with and without intravenous contrast. Rober Germain MD on June 25, 2017 at 8:03 Board Certified Radiologist. This report was verified electronically.
[2017-06-25] MEDS ORDERED: TYLE325T PO (08:40)
[2017-06-25] MEDS ORDERED: HYDROmorphone HCL PF 1 MG/ML VIAL IV PUSH ONE (08:45)
[2017-06-25 09:11] VITALS: BP 117/72
== END 2017-06-25 09:25 | disposition home or self-care (01) ==
LOC: PHED 06:05
DX: R10.13 Epigastric pain (principal); F17.210 Nicotine dependence, cigarettes, uncomplicated
CPT/HCPCS: 74177; 80053; 81001; 83690; 84703; 85007; 85027; 85610; 85730; 96361; 96374; 96375; 99285; C9113; J1170; J1885; J2405; J7030; Q9967

== ENCOUNTER 2017-06-27 01:28 | Emergency (ER) | payer OTHER ==
[~2017-06-27] VITALS: Ht 160 cm; Wt 50.2 kg
[~2017-06-27 01:28] MED LIST changes: -IBUP-232 PO; -PRED20 PO; +TYLE325T PO; -ZOFR4TAB3 SL
[2017-06-27 01:30] VITALS: BP 154/83; PULSE 77; RESP 20; TEMP 99.6; O2SAT 100
[2017-06-27 01:50] VITALS: RESP 16; O2SAT 100
[2017-06-27 01:55] VITALS: BP 137/81; PULSE 84; RESP 16; O2SAT 100
[2017-06-27] MEDS ORDERED: SODIUM CHLOR 0.9% 1000 ML INJ 1,000 ML IV SCH (02:06)
--- NOTE | 2017-06-27 02:13 | PD ---
HPI Chief Complaint: Abdominal Pain Time Seen by Provider: 02:06 Travel History International Travel<30 days: No Contact w/Intl Traveler<30days: No Traveled to known affect area: No History of Present Illness HPI 32-year-old female presents to the emergency department by private transportation for complaint of severe epigastric pain. Patient reports nausea and vomiting. No hematemesis coffee-ground emesis or bilious emesis. Patient' s had loose stool. Patient has no known dietary indiscretion well water ingestion or foreign travel. Patient was just seen for same complaint 2 days ago and underwent extensive evaluation including ultrasound of the gallbladder that was normal. Patient was seen in the morning of 06/25/17 with normal CBC and normal CT abdomen and pelvis except for area of the liver possible hemangioma otherwise findings unable to explain patient's pain. Patient reports history of gastritis pancreatitis and asthma. Patient has not had the opportunity to see her primary care provider. Patient was provided for Zantac and Zofran. Patient reports fever at home of 10 1F but no fever documented in the emergency department. Patient reports occasionally takes ibuprofen for pain management but has not taken the ibuprofen over the past several days. Patient vomited stomach contents noodles soup that she attempted to ingest earlier this evening. Patient unable to identify exacerbating or alleviating factors. Patient requesting medication for pain relief and anti-emetic. PFSH Past Medical History Narrative Medical Asthma gastritis pancreatitis childhood palpitations ovarian cyst; no surgeries ; occasional alcohol use tobacco use; nursing notes reviewed Asthma: Yes Heart Rhythm Problems: Yes (AGE 10 - "RAPID HEART BEAT") Diminished Hearing: No Gastrointestinal Disorders: Yes (PANCREATITIS, GASTRITIS) Respiratory: Yes (ASTHMA) Immunizations Current: Yes Pancreatitis: Yes Tetanus Vaccination: Unknown Influenza Vaccination: Yes ?: Not LMP: 06/27/17 : 1 Para: 1 Ovarian Cysts: Yes Social History Alcohol Use: Yes (SOC) Tobacco Use: Yes (1 PPD) Substance Use: No (DENIES, PREVIOUSLY STATED MARIJUANA DAILY) Allergies-Medications (Allergen,Severity, Reaction): Coded Allergies: Tuberculin PPD (Verified Allergy, Unknown, Hives, 06/27/17) Milk (Verified Adverse Reaction, Severe, UNKNOWN, 06/27/17) Tomato (Verified Adverse Reaction, Severe, UNKNOWN , 06/27/17) Morphine (Verified Adverse Reaction, Unknown, Nausea/Vomiting, 06/27/17) DOES NOT LIKE THE WAY IT MAKES HER FEEL Reported Meds & Prescriptions Reported Meds & Active Scripts Active Zofran Odt (Ondansetron Odt) 4 Mg Tab 4 Mg SL Q6HR PRN Carafate Liq (Sucralfate) 1 Gm/10 Ml Susp 1 Gm PO Q6HR 10 Days on empty stomach [place] (Hydrocodone-Acetaminophen) 5-325 mg Tab 1 Tab PO Q6H PRN Zantac 150 Maximum Strength (Ranitidine HCl) 150 Mg Tab 150 Mg PO BID 28 Days Nebulizer 1 Mis Mis 1 Ea .ROUTE DIRECTED Use with albuterol every 4 hours as needed for shortness of breath, wheezing. Albuterol Neb (Albuterol Sulfate) 2.5 Mg/3 Ml Neb 2.5 Mg NEB Q4HR NEB PRN Ventolin Hfa 18 GM Inh (Albuterol Sulfate) 90 Mcg/Act Aer 2 Puff INH Q4H PRN Review of Systems Except as stated in HPI: all other systems reviewed are Neg General / Constitutional: Positive: Fever (2 days ago), No: Chills HENT: No: Sore Throat, Congestion Cardiovascular: No: Chest Pain or Discomfort Respiratory: No: Shortness of Breath Gastrointestinal: Positive: Nausea, Vomiting, Abdominal Pain, No: Diarrhea, Hematemesis, Hematochezia, Constipation, Loss of Appetite Genitourinary: No: Frequency, Dysuria, Flank Pain Musculoskeletal: No: Myalgias, Arthralgias Skin: No Rash Neurologic: No: Weakness Psychiatric: No: Anxiety Endocrine: No: Heat Intolerance, Cold Intolerance Hematologic/Lymphatic: No: Easy Bruising Physical Exam Narrative GENERAL: Well-developed well-nourished female in no acute distress no respiratory distress SKIN: Warm and dry. HEAD: Normocephalic. EYES: No scleral icterus. No injection or drainage. NECK: Supple, trachea midline. No JVD or lymphadenopathy. CARDIOVASCULAR: Regular rate and rhythm without murmurs, gallops, or rubs. RESPIRATORY: Breath sounds equal bilaterally. No accessory muscle use. GASTROINTESTINAL: Abdomen soft, reproducible epigastric tenderness to palpation without guarding or rebound, nondistended. MUSCULOSKELETAL: No cyanosis, or edema. BACK: Nontender without obvious deformity. No CVA tenderness. Data Data Last Documented VS Vital Signs Date Time Temp Pulse Resp B/P Pulse Ox O2 Delivery O2 Flow Rate FiO2 06/27/17 04:05 64 18 131/80 98 Room Air 06/27/17 01:30 99.6 Orders Complete Blood Count With Diff (06/27/17 02:06) Comprehensive Metabolic Panel (06/27/17 02:06) Lipase (06/27/17 02:06) Ua Includes Microscopic (06/27/17 02:06) Abdomen, Flat & Upright (06/27/17 ) Iv Access Insert/Monitor (06/27/17 02:06) Ecg Monitoring (06/27/17 02:06) Oximetry (06/27/17 02:06) Ondansetron Inj (Zofran Inj) (06/27/17 02:15) Pantoprazole Inj (Protonix Inj) (06/27/17 02:15) Sodium Chlor 0.9% 1000 Ml Inj (Ns 1000 M (06/27/17 02:06) Sodium Chloride 0.9% Flush (Ns Flush) (06/27/17 02:15) Ed Urine Pregnancytest Poc (06/27/17 02:06) Sucralfate Liq (Carafate Liq) (06/27/17 02:15) Hydromorphone Pf Inj (Dilaudid Pf Inj) (06/27/17 03:00) Metoclopramide Inj (Reglan Inj) (06/27/17 03:00) Potassium Chloride (Kcl) (06/27/17 03:30) Ondansetron Inj (Zofran Inj) (06/27/17 04:15) Labs Laboratory Tests Test 06/27/17 01:55 White Blood Count 5.3 TH/MM3 Red Blood Count 5.09 MIL/MM3 Hemoglobin 13.7 GM/DL Hematocrit 41.2 % Mean Corpuscular Volume 81.1 FL Mean Corpuscular Hemoglobin 26.9 PG Mean Corpuscular Hemoglobin 33.1 % Concent Red Cell Distribution Width 12.7 % Platelet Count 156 TH/MM3 Mean Platelet Volume 9.2 FL Neutrophils (%) (Auto) 62.1 % Lymphocytes (%) (Auto) 28.3 % Monocytes (%) (Auto) 7.8 % Eosinophils (%) (Auto) 1.4 % Basophils (%) (Auto) 0.4 % Neutrophils # (Auto) 3.3 TH/MM3 Lymphocytes # (Auto) 1.5 TH/MM3 Monocytes # (Auto) 0.4 TH/MM3 Eosinophils # (Auto) 0.1 TH/MM3 Basophils # (Auto) 0.0 TH/MM3 CBC Comment DIFF FINAL Differential Comment Urine Color STRAW Urine Turbidity CLEAR Urine pH 6.0 Urine Specific [place] 1.010 Urine Protein NEG mg/dL Urine Glucose (UA) NEG mg/dL Urine Ketones NEG mg/dL Urine Occult Blood TRACE Urine Nitrite NEG Urine Bilirubin NEG Urine Leukocyte Esterase NEG Urine RBC 0-2 /hpf Urine WBC 0-2 /hpf Urine Squamous Epithelial 0-5 /hpf Cells Urine Bacteria NONE /hpf Sodium Level 142 MEQ/L Potassium Level 3.0 MEQ/L Chloride Level 110 MEQ/L Carbon Dioxide Level 24.8 MEQ/L Anion Gap 7 MEQ/L Blood Urea Nitrogen 8 MG/DL Creatinine 1.00 MG/DL Estimat Glomerular Filtration 77 ML/MIN Rate Random Glucose 102 MG/DL Calcium Level 8.0 MG/DL Total Bilirubin 0.3 MG/DL Aspartate Amino Transf 23 U/L (AST/SGOT) Alanine Aminotransferase 38 U/L (ALT/SGPT) Alkaline Phosphatase 59 U/L Total Protein 6.5 GM/DL Albumin 3.5 GM/DL Lipase 123 U/L MDM Medical Decision Making Medical Screen Exam Complete: Yes Emergency Medical Condition: Yes Medical Record Reviewed: Yes Interpretation(s) [id number] hCG: Negative Last Impressions Abdomen X-Ray 06/27/17 0000 Signed Impressions: Service Date/Time: June 02:32 - CONCLUSION: Unremarkable exam. Russel Encinas MD CBC & BMP Diagram 06/27/17 01:55 Vital Signs Date Time Temp Pulse Resp B/P Pulse Ox O2 Delivery O2 Flow Rate FiO2 06/27/17 03:29 16 06/27/17 03:05 74 16 145/86 100 Room Air 06/27/17 02:01 16 06/27/17 01:55 84 16 137/81 100 Room Air 06/27/17 01:50 16 100 Room Air 06/27/17 01:30 99.6 77 20 154/83 100 Differential Diagnosis Abdominal pain, gastritis, peptic ulcer disease, pancreatitis, gastroparesis, electrolyte disturbance, perforated viscus; patient with recent gallbladder ultrasound and CT abdomen and pelvis without evidence of gallbladder disease. Narrative Course IV access obtained specimens collected and sent for resulting patient administered normal saline bolus, Zofran 4 mg IV, Carafate 1 g liquid administered Patient given Zofran 4 mg IV along with Dilaudid 0.5 mg IV Patient given potassium replacement for serum potassium of 3.0; 40 mEq by mouth ; bicarbonate and anion gap thighs and normal range. Patient has been sleeping since receiving Dilaudid 0.5 mg IV Abdominal x-ray flat and upright reveals no evidence of subdiaphragmatic free air. 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 Diagnosis Primary Impression: Abdominal pain Qualified Code: R10.13 - Epigastric pain Additional Impressions: Gastritis Hypokalemia Referrals: [employer] Lead call for appointment Primary Care Physician 1 day Patient Instructions: General Instructions, Narcotic given in the ED Additional Instructions: Follow clear liquid diet for next 12-24 hours advance as tolerated to bland diet then regular diet avoiding fried and fatty foods Avoid nonsteroidal anti-inflammatory medication such as ibuprofen/Advil/Motrin or naproxen/Naprosyn/Aleve or aspirin Take Zantac as previously prescribed twice daily Take Carafate 4 times daily Take Zofran every 6 hours as needed for nausea and/or vomiting Follow-up with primary care provider call office in the a.m. Follow-up with rock crusher Return to the emergency department for any concerns or change in condition May take acetaminophen/Tylenol as needed for minor pain Recommend adding potassium-containing foods and beverages to dietary intake Med/Other Pt SpecificInfo: Prescription(s) given Scripts Ondansetron Odt (Zofran Odt)4 Mg Tab4 Mg SL Q6HR PRN (Nausea/Vomiting) #10 TAB Ref 0 Prov:Kallie Rosario MD 06/27/17 Sucralfate Liq (Carafate Liq)1 Gm/10 Ml Susp1 Gm PO Q6HR 10 Days Ref 0 on empty stomach Prov:Kallie Rosario MD 06/27/17 Disposition: 01 DISCHARGE HOME Condition: Stable Kallie Rosario MD Jun 27, 2017 02:13
[2017-06-27] MEDS ORDERED: ONDANSETRON HCL 4 MG/2 ML VIAL IVP ONE (02:15)
[2017-06-27] MEDS ORDERED: SUCRALFATE 1 GM/10 ML CUP PO ONE (02:15)
[2017-06-27] MEDS ORDERED: SODIUM CHLORIDE 0.9% FLUSH 10 ML FLUSH IV FLUSH PRN (02:15)
[2017-06-27] MEDS ORDERED: PANTOPRAZOLE SODIUM 40 MG VIAL IVP ONE (02:15)
[2017-06-27 02:33] LABS: BLOOD, URINE TRACE (NEG); GLUCOSE,URINE NEG (NEG); KETONE, URINE NEG (NEG); NITRITE,URINE NEG (NEG)
[2017-06-27 02:35] LABS: AUTOMATED NEUTROPHIL # 3.3 TH/MM3 (1.8-7.7); BASOPHIL % 0.4 % (0.0-2.0); EOSINOPHIL # 0.1 TH/MM3 (0-0.4); EOSINOPHIL % 1.4 % (0.0-4.0); HEMATOCRIT 41.2 % (35.0-46.0); HEMO FLAGS DIFF FINAL; LYMPH % 28.3 % (9.0-44.0); LYMPHOCYTE # 1.5 TH/MM3 (1.0-4.8); MEAN CELL VOLUME 81.1 FL (80.0-100.0); MEAN CORPUSCULAR HEMOGLOBIN 26.9 PG (27.0-34.0); MEAN CORPUSCULAR HGB CONC 33.1 % (32.0-36.0); MONO % 7.8 % (0.0-8.0); NEUT % 62.1 % (16.0-70.0); PLATELET COUNT 156 TH/MM3 (150-450); RED BLOOD COUNT 5.09 MIL/MM3 (4.00-5.30); RED CELL DISTRIBUTION WIDTH 12.7 % (11.6-17.2); WHITE BLOOD COUNT 5.3 TH/MM3 (4.0-11.0)
[2017-06-27 02:47] LABS: CHLORIDE 110 MEQ/L (98-107); SODIUM (NA) 142 MEQ/L (136-145)
[2017-06-27 02:48] LABS: URINE COLOR STRAW (YELLW/STRAW)
[2017-06-27 02:49] LABS: RBC, URINE 0-2 /hpf (0-3); SQUAMOUS EPITHELIAL CELL URINE 0-5 /hpf (0-5); WBC, URINE 0-2 /hpf (0-5)
[2017-06-27 02:51] LABS: ANION GAP 7 MEQ/L (5-15); BICARBONATE 24.8 MEQ/L (21.0-32.0)
[2017-06-27 02:52] LABS: BLOOD UREA NITROGEN 8 MG/DL (7-18)
[2017-06-27 02:54] LABS: ALT (GPT) 38 U/L (10-53); AST (GOT) 23 U/L (15-37); GLOMERULAR FILTRATION RATE 77 ML/MIN (>89)
[2017-06-27 02:56] LABS: TOTAL BILIRUBIN ADULT 0.3 MG/DL (0.2-1.0)
[2017-06-27 02:57] LABS: ALKALINE PHOSPHATASE 59 U/L (45-117)
[2017-06-27] MEDS ORDERED: HYDROmorphone HCL PF 1 MG/ML VIAL IV PUSH ONE (03:00)
[2017-06-27] MEDS ORDERED: METOCLOPRAMIDE HCL 10 MG/2 ML VIAL IV PUSH ONE (03:00)
[2017-06-27 03:05] VITALS: BP 145/86; PULSE 74; RESP 16; O2SAT 100
--- NOTE | 2017-06-27 03:29 | RADRPT ---
EXAM DATE/TIME: 06/27/2017 02:32 [facility] COMPARISON: CT ABDOMEN & PELVIS W CONTRAST, June 25, 2017, 7:46. ABDOMEN FLAT & UPRIGHT, August 24, 2014, 0 :25. INDICATIONS : Abdominal pain. MEDICAL HISTORY : Pancreatitis. Gastritis. SURGICAL HISTORY : None. ENCOUNTER: [facility] ACUITY: 4 - 6 days PAIN SCORE: 10/10 LOCATION: all quadrants. FINDINGS: Supine and upright views of the abdomen were performed. The abdominal bowel gas pattern is normal. No air fluid levels are seen. No abnormal masses, calcifications, or organomegaly is seen. The visu alized lower lungs are clear. No evidence of free intraperitoneal gas. The osseous structures are u nremarkable. CONCLUSION: Unremarkable exam. Russel Encinas MD on June 27, 2017 at 3:26 Board Certified Radiologist. This report was verified electronically.
[2017-06-27] MEDS ORDERED: POTASSIUM CHLORIDE 20 MEQ CONTROLLED RELEASE TAB PO ONE (03:30)
[2017-06-27] MEDS ORDERED: ZOFR4TAB3 SL (03:56)
[2017-06-27] MEDS ORDERED: CARA1SUS3 PO (03:56)
[2017-06-27 04:05] VITALS: BP 131/80; PULSE 64; RESP 18; O2SAT 98
[2017-06-27] MEDS ORDERED: ONDANSETRON HCL 4 MG/2 ML VIAL IV PUSH ONE (04:15)
== END 2017-06-27 04:31 | disposition home or self-care (01) ==
LOC: PHED 01:28
DX: K29.70 Gastritis, unspecified, without bleeding (principal); E87.6 Hypokalemia; F17.200 Nicotine dependence, unspecified, uncomplicated
CPT/HCPCS: 74020; 80053; 81001; 83690; 84703; 85025; 96361; 96374; 96375; 96376; 99284; C9113; J1170; J2405; J2765; J7030

== ENCOUNTER 2018-04-21 22:58 | Emergency (ER) | payer OTHER ==
[~2018-04-21] VITALS: Ht 160 cm; Wt 50.5 kg
[~2018-04-21 22:58] MED LIST changes: +CARA1SUS3 PO; -TYLE325T PO; +ZOFR4TAB3 SL
[2018-04-21 22:59] VITALS: BP 104/62; PULSE 84; RESP 18; TEMP 98.4; O2SAT 98
[2018-04-21] MEDS ORDERED: SULFAMETHOXAZOLE-TRIMETHOPRIM DS 800-160 MG TAB PO ONE (23:30)
[2018-04-21] MEDS ORDERED: IBUPROFEN 600 MG TAB PO ONE (23:30)
[2018-04-21] MEDS ORDERED: BACT800T5 PO (23:32)
[2018-04-21] MEDS ORDERED: IBUP-232 PO (23:32)
--- NOTE | 2018-04-21 23:32 | PD ---
HPI Chief Complaint: Lump, Cyst, Hernia Time Seen by Provider: 23:04 Travel History International Travel<30 days: No Contact w/Intl Traveler<30days: No Traveled to known affect area: No History of Present Illness HPI The patient is a 32-year-old -[place] female who presents to the emergency department for possible abscess to the anterior aspect of the abdomen. Patient states is located over the superior pubic and inferior abdominal area where she shaves. There is a small red area that is swollen and tender to palpation. She does note it is sensitive to palpation, does note mild redness, but denies any drainage from the affected area. The patient denies any associated fever, chills, or sweats. The patient denies any nausea or vomiting. Symptoms are mild to moderate. PFSH Past Medical History Asthma: Yes Heart Rhythm Problems: Yes (AGE 10 - "RAPID HEART BEAT") Diminished Hearing: No Gastrointestinal Disorders: Yes (PANCREATITIS, GASTRITIS) Respiratory: Yes (ASTHMA) Immunizations Current: Yes Pancreatitis: Yes Tetanus Vaccination: > 5 Years Influenza Vaccination: Yes ?: Not LMP: 04/19/18 : 1 Para: 1 Ovarian Cysts: Yes Social History Alcohol Use: Yes (SOC) Tobacco Use: Yes (1 PPD) Substance Use: No (DENIES, PREVIOUSLY STATED MARIJUANA DAILY) Allergies-Medications (Allergen,Severity, Reaction): Coded Allergies: tuberculin, purified protein deriva (Unverified Allergy, Unknown, Hives, ) milk (Unverified Adverse Reaction, Severe, UNKNOWN, 07/09/17) tomato (Unverified Adverse Reaction, Severe, UNKNOWN , 07/09/17) morphine (Unverified Adverse Reaction, Unknown, Nausea/Vomiting, 07/09/17) DOES NOT LIKE THE WAY IT MAKES HER FEEL Reported Meds & Prescriptions Reported Meds & Active Scripts Active Albuterol Neb (Albuterol Sulfate) 2.5 Mg/3 Ml Neb 2.5 Mg NEB Q4HR NEB PRN Ventolin Hfa 18 GM Inh (Albuterol Sulfate) 90 Mcg/Act Aer 2 Puff INH Q4H PRN Review of Systems Except as stated in HPI: all other systems reviewed are Neg General / Constitutional: No: Fever Gastrointestinal: Positive: Abdominal Pain (As noted in history of present), No : Nausea Skin: Positive Other (As noted in history of present illness) Physical Exam Narrative GENERAL: Awake, alert, nontoxic-appearing 32-year-old female who appears her stated age and is in no acute respiratory distress. SKIN: Focused skin assessment warm/dry. HEAD: Atraumatic. Normocephalic. EYES: No injection or drainage. GASTROINTESTINAL: Abdomen soft, reveals a midline small erythematous area slightly raised tender to palpation with no palpable fluctuance. Minimal surrounding induration. No guarding or rigidity. MUSCULOSKELETAL: No obvious deformities. No clubbing. No cyanosis. No edema. NEUROLOGICAL: Awake and alert. No obvious cranial nerve deficits. Motor grossly within normal limits. Normal speech. PSYCHIATRIC: Appropriate mood and affect; insight and judgment normal. Data Data Last Documented VS Vital Signs Date Time Temp Pulse Resp B/P (MAP) Pulse Ox O2 Delivery O2 Flow Rate FiO2 04/21/18 22:59 98.4 84 18 104/62 (76) 98 Orders Orders Sulfamet-Trimeth Ds 800-160 Mg (Bactrim (04/21/18 23:30) Ibuprofen (Motrin) (04/21/18 23:30) [facility] Medical Decision Making Medical Screen Exam Complete: Yes Emergency Medical Condition: Yes Medical Record Reviewed: Yes Differential Diagnosis Differential diagnosis includes abscess, folliculitis, carbuncle, furuncle, hernia, incarcerated hernia, strangulate hernia, cellulitis. Narrative Course Physical examination reveals a small area of induration and redness proximal 1 cm in diameter with no palpable fluctuance. Bedside ultrasound was performed with a linear probe which reveals a small area of fluid collection less than 1 cm in diameter approximately 0.5 cm to 1 cm deep. Too small for an incision and drainage. The patient will be placed on Bactrim and ibuprofen. She is advised to have warm compresses to the affected area and follow-up with a primary physician. Return if symptoms worsen or progress. Procedures Procedure Narrative I performed a bedside ultrasound with a linear probe of the affected area. There was an area approximately 0.5 cm to 1 cm deep midline, less than 1 cm in diameter with a small amount of fluid collection, no visible hernia. The patient appears to have a small area of folliculitis with fluid collection, too small for incision and drainage. The patient will be placed on Bactrim. She was provided 1 dose of Bactrim and ibuprofen in the emergency department. Is advised to have warm compresses to the affected area and follow-up with her primary physician. Diagnosis Primary Impression: Folliculitis Patient Instructions: General Instructions Additional Instructions: Warm compresses to the affected area. Medications as directed. Return in 48- 72 hours if symptoms are worsening or progressing. Follow-up with your primary physician. Med/Other Pt SpecificInfo: Prescription(s) given Scripts Ibuprofen (Ibuprofen) 600 Mg Tab 600 MG PO Q6H Y for Pain/Inflammation, #20 TAB 0 Refills Prov: Kd Malik MD 04/21/18 Sulfamethoxazole-Trimethoprim (Bactrim DS) 800-160 Mg Tab 1 TAB PO BID for Infection, #14 TAB 0 Refills Prov: Kd Malik MD 04/21/18 Disposition: 01 DISCHARGE HOME Condition: Stable Kd Malik MD April 21, 2018 23:32
== END 2018-04-21 23:45 | disposition home or self-care (01) ==
LOC: PHED 22:58
DX: L73.9 Follicular disorder, unspecified (principal); J45.909 Unspecified asthma, uncomplicated; F17.200 Nicotine dependence, unspecified, uncomplicated
CPT/HCPCS: 99283